=== PATIENT | male | born 1960 | race Caucasian/White ===

== ENCOUNTER → 2016-09-16 | Outpatient (CLI) | payer OTHER ==
[~2016-09-16] MED LIST: ALPRAZOLAM PO; CHOLESTEROL MED; FLEXERIL PO; FLOMAX0.4 M1 PO; LORTAB 7.5-5001 TAB PO; MOTRIN600 M2 PO; PERCOCET PO; PRINIVIL40 MG PO; PROZAC PO; ZANTAC150 MG PO; ZOFRANODT PO
--- NOTE | ~2016-09-16 | CT138 ---
[facility] A Service of [facility] & [facility] RADIOLOGY TEXT RESULTS PAT[facility]: [facility] #: [id number] AGE: [address]: ELDA HEAD APR SEX: M ORDER DR: [id number] [facility] [address]. [place], [place] [address] [id number] O MR#: [id number] [facility] #: [id number] NAME: LUCIE PORTER : 1960 SEX: M STUDY DATE/TIME: 09/16/2016 14:47 UNIT: [facility] ROOM: STUDY DESCRIPTION: CT Lung screening initial Attending Physician: Elda Head Aprn Referring Physician: Elda Head Aprn Ordering Physician: Elda Head Aprn Primary Care Physician: Brenda Carlson MEDICAL IMAGING REPORT This report is preliminary unless electronic signature is present EXAM CT of the chest without contrast, lung cancer screening. INDICATION 60 pack-year total smoking history. Current smoker. TECHNIQUE CT chest was performed without contrast using the low-dose lung cancer screening protocol. Coronal and sagittal reformatted images were obtained. CT dose index 2.[address] exam was performed with one or more of the following radiation dose reduction techniques: automatic exposure control, adjustment of mA and/or kV according to patient size, and iterative reconstruction. COMPARISON No comparisons. FINDINGS There is a micronodule in the right upper lobe on image 66. Micronodule in the left upper lobe on image 67. Micronodule in the base of the left lower lobe, image 112. Micronodule in the right lower lobe on image 82. I suspect there is a large thyroid nodule on multiple nodules in the left lobe of the thyroid. This could be correlated with thyroid ultrasound as clinically indicated, if the patient has not had any prior thyroid ultrasounds. No lymphadenopathy. Coronary artery calcification. No pleural effusion. Limited imaging of the upper abdomen is unremarkable. The bone windows are unremarkable. IMPRESSION Scattered micronodules in the lungs. ACR LungRADS category 2. Follow up annual low-dose lung cancer screening chest CT in 1 year. Dictated by... [facility] A Service of [facility] RADIOLOGY TEXT RESULTS PATIENT: [facility]OR[id number] : [birth year] UNIT #: [id number] AGE: [address]: ELDA HEAD APR SEX: M ORDER DR: Josh Butterfield M.D. THIS IS AN ELECTRONICALLY VERIFIED REPORT Josh Butterfield M.D. at 09/17/2016 9:07 AM MARSH[place]/ute TD: 09/16/2016 16:41 JOB #: [id number] MEDICAL IMAGING REPORT Page 1 of 1 COPY
== END | disposition home or self-care (01) ==
LOC: CCAT 14:07
DX: F17.210 Nicotine dependence, cigarettes, uncomplicated (principal); R91.8 Other nonspecific abnormal finding of lung field
CPT/HCPCS: G0297